=== PATIENT | female | born 1950 | race African-American/Black ===

== ENCOUNTER 2016-09-01 14:49 | Emergency (ER) | payer OTHER ==
[2016-09-01] VITALS (10 sets, daily range): BP systolic 135–242; BP diastolic 85–179; PULSE 68–80; RESP 16–18; TEMP 98.2–98.3; O2SAT 89–96
[~2016-09-01] VITALS: Ht 157.5 cm; Wt 84.0 kg
[~2016-09-01 14:49] MED LIST: ASPI81TA82 PO; BUME2TAB PO; CARV25TA PO; CHOL1CAP6 PO; FLUT50SP EACH NARE; GABA300C3 PO; HUMALOGP SQ; HYDR-3533 PO; HYDR50TA15 PO; ISOS30TA3 PO; LANS30 PO
--- NOTE | 2016-09-01 15:26 | PD ---
HPI Chief Complaint: Pain: Acute or Chronic Time Seen by Provider: 14:56 Travel History International Travel<30 days: No Contact w/Intl Traveler<30days: No Traveled to known affect area: No History of Present Illness HPI 65-year-old female complains of right-sided mid back pain right-sided upper back pain. Patient states that the symptoms started yesterday. Patient stated the pain constant pain sharp pain and worse with deep breathing. Patient denies any recent fall or injury. Patient denies any coughing congestion or shortness of breath. Patient has history of COPD and has been using O2 3 L nasal cannula is needed at home. Patient denies any fever chills. Patient has history of CHF also. Patient states that she did not take her blood pressure medication today. PFSH Past Medical History Cardiovascular Problems: Yes (CHF) High Cholesterol: Yes Congestive Heart Failure: Yes (CHRONIC DIASTOLIC) COPD: Yes Diabetes: Yes (TYPE 2) Patient Takes Glucophage: No Diminished Hearing: No GERD: Yes Gout: Yes (LEFT ANKLE AND FOOT) Genitourinary: Yes ( CHRONIC KIDNEY DISEASE ) Hypertension: Yes Respiratory: Yes (COPD) Immunizations Current: No Thyroid Disease: Yes (HYPO) Tetanus Vaccination: Unknown Influenza Vaccination: Yes ?: Not Menopausal: Yes : 6 Para: 6 Tubal Ligation: Yes Past Surgical History Cholecystectomy: Yes Social History Alcohol Use: No Tobacco Use: No (QUIT 10 YEARS AGO ) Substance Use: No Allergies-Medications (Allergen,Severity, Reaction): Coded Allergies: Lantus (Verified Allergy, Severe, 09/01/16) Metformin (Verified Allergy, Severe, 09/01/16) Latex (Verified Allergy, Unknown, 09/01/16) Reported Meds & Prescriptions Reported Meds & Active Scripts Active Alexander (Hydrocodone-Acetaminophen) 5-325 mg Tab 1 Tab PO Q6H PRN Clonidine (Clonidine HCl) 0.1 Mg Tab 0.1 Mg PO BID Reported Humalog Inj (Insulin Human Lispro) 1,000 Unit/10 Ml Vial 10 Units SQ BIDAC PER SLIDING SCALE Levemir Inj (Insulin Detemir) 1,000 unit/ 10 ML Vial 25 Units SQ DAILY IN THE AM Do not mix with any other Insulin. Vitamin D3 (Cholecalciferol) 1,000 Unit Tab 1,000 Units PO DAILY Levothyroxine (Levothyroxine Sodium) 75 Mcg Tab 75 Mcg PO DAILY Hydralazine (Hydralazine HCl) 25 Mg Tab 25 Mg PO QID Sodium Bicarbonate 650 Mg Tab 650 Mg PO BID Lansoprazole 30 Mg Capdr 30 Mg PO DAILY Lisinopril 40 Mg Tab 40 Mg PO DAILY Glimepiride 4 Mg Tab 4 Mg PO DAILY Take with breakfast or first main meal Coreg (Carvedilol) 25 Mg Tab 25 Mg PO BID Bumex (Bumetanide) 2 Mg Tab 2 Mg PO DAILY Gabapentin 300 Mg Cap 300 Mg PO TID Isosorbide Dinitrate 30 Mg Tab 30 Mg PO Q12HR Aspirin Adult Low Strength (Aspirin) 81 Mg Tabdr 81 Mg PO DAILY Review of Systems General / Constitutional: No: Fever Eyes: No: Visual changes HENT: No: Headaches Cardiovascular: Positive: Chest Pain or Discomfort Respiratory: No: Shortness of Breath Gastrointestinal: No: Abdominal Pain Genitourinary: No: Dysuria Musculoskeletal: No: Pain Skin: No Rash Neurologic: No: Weakness Psychiatric: No: Depression Endocrine: No: Polydipsia Hematologic/Lymphatic: No: Easy Bruising Physical Exam Narrative GENERAL: Well-nourished, well-developed patient. SKIN: Warm and dry. HEAD: Normocephalic. EYES: No scleral icterus. No injection or drainage. NECK: Supple, trachea midline. No JVD or lymphadenopathy. CARDIOVASCULAR: Regular rate and rhythm without murmurs, gallops, or rubs. RESPIRATORY: Breath sounds equal bilaterally. No accessory muscle use. GASTROINTESTINAL: Abdomen soft, non-tender, nondistended. MUSCULOSKELETAL: No cyanosis, or edema. BACK: Patient has mild tenderness on palpation low thoracic upper lumbar area midline and right side midback, without obvious deformity. No CVA tenderness. No rash noted. Neurologic exam normal. Data Data Last Documented VS Vital Signs Date Time Temp Pulse Resp B/P Pulse Ox O2 Delivery O2 Flow Rate FiO2 09/01/16 21:37 70 18 185/85 09/01/16 19:38 95 09/01/16 18:00 Nasal Cannula 2 09/01/16 15:01 98.2 Orders Electrocardiogram (09/01/16 ) Complete Blood Count With Diff (09/01/16 15:06) Comprehensive Metabolic Panel (09/01/16 15:06) Creatine Kinase (Cpk) (09/01/16 15:06) Troponin I (09/01/16 15:06) B-Type Natriuretic Peptide (09/01/16 15:06) Prothrombin Time / Inr (Pt) (09/01/16 15:06) Act Partial Throm Time (Ptt) (09/01/16 15:06) Urinalysis - C+S If Indicated (09/01/16 15:06) D-Dimer (09/01/16 15:06) Chest, Single Ap (09/01/16 15:06) Iv Access Insert/Monitor (09/01/16 15:06) Ecg Monitoring (09/01/16 15:06) Oxygen Administration (09/01/16 15:06) Oximetry (09/01/16 15:06) Ct Thor Spine W/O Contrast (09/01/16 15:06) Ct Lumb Spine W/O Contrast (09/01/16 15:06) Ventilation & Perfusion Scan (09/01/16 17:03) Hydralazine Inj (Apresoline Inj) (09/01/16 17:45) Hydralazine Inj (Apresoline Inj) (09/01/16 19:45) Clonidine (Catapres) (09/01/16 20:15) Morphine Inj (Morphine Inj) (09/01/16 20:30) Ondansetron Odt (Zofran Odt) (09/01/16 20:30) Labs Laboratory Tests Test 09/01/16 09/01/16 15:32 17:30 White Blood Count 6.6 TH/MM3 Red Blood Count 3.85 MIL/MM3 Hemoglobin 9.7 GM/DL Hematocrit 31.0 % Mean Corpuscular Volume 80.5 FL Mean Corpuscular Hemoglobin 25.1 PG Mean Corpuscular Hemoglobin 31.2 % Concent Red Cell Distribution Width 18.3 % Platelet Count 261 TH/MM3 Mean Platelet Volume 7.8 FL Neutrophils (%) (Auto) 70.7 % Lymphocytes (%) (Auto) 16.8 % Monocytes (%) (Auto) 7.6 % Eosinophils (%) (Auto) 3.1 % Basophils (%) (Auto) 1.8 % Neutrophils # (Auto) 4.7 TH/MM3 Lymphocytes # (Auto) 1.1 TH/MM3 Monocytes # (Auto) 0.5 TH/MM3 Eosinophils # (Auto) 0.2 TH/MM3 Basophils # (Auto) 0.1 TH/MM3 CBC Comment DIFF FINAL Differential Comment Prothrombin Time 11.4 SEC Prothromb Time International 1.0 RATIO Ratio Activated Partial 26.0 SEC Thromboplast Time D-Dimer Quantitative (PE/DVT) 1.82 MG/L FEU Sodium Level 143 MEQ/L Potassium Level 4.8 MEQ/L Chloride Level 109 MEQ/L Carbon Dioxide Level 25.5 MEQ/L Anion Gap 9 MEQ/L Blood Urea Nitrogen 59 MG/DL Creatinine 3.22 MG/DL Estimat Glomerular Filtration 18 ML/MIN Rate Random Glucose 80 MG/DL Calcium Level 8.7 MG/DL Total Bilirubin 0.6 MG/DL Aspartate Amino Transf 36 U/L (AST/SGOT) Alanine Aminotransferase 66 U/L (ALT/SGPT) Alkaline Phosphatase 197 U/L Total Creatine Kinase 161 U/L Troponin I LESS THAN 0.02 NG/ML B-Type Natriuretic Peptide 463 PG/ML Total Protein 7.8 GM/DL Albumin 3.3 GM/DL Urine Color LIGHT-YELLOW Urine Turbidity CLEAR Urine pH 7.0 Urine Specific [place] 1.010 Urine Protein 300 mg/dL Urine Glucose (UA) NEG mg/dL Urine Ketones NEG mg/dL Urine Occult Blood TRACE Urine Nitrite NEG Urine Bilirubin NEG Urine Urobilinogen LESS THAN 2.0 MG/DL Urine Leukocyte Esterase NEG Urine RBC 7 /hpf Urine WBC 2 /hpf Urine Squamous Epithelial 1 /hpf Cells Urine Bacteria OCC /hpf Microscopic Urinalysis Comment CULT NOT INDICATED MDM Medical Decision Making Medical Screen Exam Complete: Yes Emergency Medical Condition: Yes Interpretation(s) 1525 PM. EKG shows sinus rhythm with nonspecific ST-T wave change. 1855 PM. Last Impressions Thoracic Spine CT 09/01/161505 Signed Impressions: Service Date/Time: Thursday, September 01, 2016 17:10 - CONCLUSION: 1. No acute fracture or subluxation. Moderate degenerative disc disease as above. No discrete disc protrusions identified on CT examination. Aditya Mendez MD Lumbar Spine CT 09/01/16 150 Signed Impressions: Service Date/Time: Thursday, September 01, 2016 17:10 - CONCLUSION: 1. No acute fracture. Broad-based posterior disc bulges in the lower lumbar spine. Aditya Mendez MD Chest X-Ray 09/01/16 150 Signed Impressions: Service Date/Time: Thursday, September 01, 2016 15:27 - CONCLUSION: 1. Mild interstitial edema pattern. Questionable focal pneumonic infiltrate or atelectasis left midlung. Aditya Mendez MD 1856 PM. CBC WBC 6.6. Hemoglobin 9.7 hematocrit 31.0. Normal differential. BUN 59. Creatinine 3.22. GFR 18. ALT 66. Alkaline phosphatase 197. Troponin normal. BNP 463. UA negative. 2017 p.m. VQ scan normal. Differential Diagnosis Differential diagnosis including musculoskeletal, HNP, rib fracture, pneumothorax, PE. Narrative Course 65-year-old female with right-sided upper back pain and low thoracic and upper lumbar pain. Morphine 2 mg IM. Zofran 4 mg ODT. Hydralazine 10 mg IV 2. Clonidine 0.1 mg by mouth. 21:40 PM. Repeat blood pressure 185/85. Diagnosis Primary Impression: Acute thoracic myofascial strain Qualified Code: S29.019A - Acute thoracic myofascial strain, initial encounter Additional Impressions: Lumbar strain Qualified Code: S39.012A - Lumbar strain, initial encounter Uncontrolled hypertension Patient Instructions: General Instructions Additional Instructions: Take medications as directed. Follow-up with personal physician and orthopedist. Return if persistent problem or worse. Take stool softener with pain medication. Med/Other Pt SpecificInfo: Prescription(s) given Scripts Hydrocodone-Acetaminophen (Alexander)5-325 mg Tab1 Tab PO Q6H PRN (PAIN) #20 TAB Ref 0 Prov:Sandip Rahman MD 09/01/16 Clonidine 0.1 Mg Tab0.1 Mg PO BID #20 TAB Ref 0 Prov:Sandip Rahman MD 09/01/16 Disposition: 01 DISCHARGE HOME Condition: Stable Sandip Rahman MD Sep 01, 2016 15:26
[2016-09-01] MEDS ORDERED: HUMALOG SQ (16:15)
[2016-09-01] MEDS ORDERED: GLIM4TAB PO (16:15)
[2016-09-01] MEDS ORDERED: ISOS30TA15 PO (16:15)
[2016-09-01] MEDS ORDERED: LISI40TA PO (16:15)
[2016-09-01] MEDS ORDERED: LEVO75TA3 PO (16:15)
[2016-09-01] MEDS ORDERED: VITA100018 PO (16:15)
[2016-09-01] MEDS ORDERED: HYDR25TA35 PO (16:15)
[2016-09-01] MEDS ORDERED: CORE25TA PO (16:15)
[2016-09-01] MEDS ORDERED: LEVEMIR SQ (16:15)
[2016-09-01] MEDS ORDERED: SODI650T PO (16:15)
[2016-09-01] MEDS ORDERED: GABA300C5 PO (16:15)
[2016-09-01] MEDS ORDERED: ASPI1TAB91 PO (16:15)
[2016-09-01] MEDS ORDERED: LANS30CA PO (16:15)
[2016-09-01] MEDS ORDERED: BUME1TAB28 PO (16:15)
[2016-09-01 16:18] LABS: AUTOMATED NEUTROPHIL # 4.7 TH/MM3 (1.8-7.7); BASOPHIL # 0.1 TH/MM3 (0-0.2); BASOPHIL % 1.8 % (0.0-2.0); EOSINOPHIL # 0.2 TH/MM3 (0-0.4); EOSINOPHIL % 3.1 % (0.0-4.0); HEMO FLAGS DIFF FINAL; LYMPH % 16.8 % (9.0-44.0); LYMPHOCYTE # 1.1 TH/MM3 (1.0-4.8); MEAN CELL VOLUME 80.5 FL (80.0-100.0); MEAN CORPUSCULAR HEMOGLOBIN 25.1 PG (27.0-34.0); MEAN CORPUSCULAR HGB CONC 31.2 % (32.0-36.0); MONO % 7.6 % (0.0-8.0); NEUT % 70.7 % (16.0-70.0); PLATELET COUNT 261 TH/MM3 (150-450); RED BLOOD COUNT 3.85 MIL/MM3 (4.00-5.30); RED CELL DISTRIBUTION WIDTH 18.3 % (11.6-17.2); WHITE BLOOD COUNT 6.6 TH/MM3 (4.0-11.0)
--- NOTE | 2016-09-01 16:28 | RADRPT ---
EXAM DATE/TIME: 09/01/2016 15:27 [facility] COMPARISON: No previous studies available for comparison. INDICATIONS : Short of breath. MEDICAL HISTORY : None. SURGICAL HISTORY : None. ENCOUNTER: Initial ACUITY: 1 day PAIN SCORE: 10/10 LOCATION: Right lower chest pain. FINDINGS: Heart size mildly enlarged. Interstitial prominence present in the lungs which could represent some m ild edema. There is focal consolidation left midlung that could represent superimposed infection. No significant effusion. No pneumothorax. CONCLUSION: 1. Mild interstitial edema pattern. Questionable focal pneumonic infiltrate or atelectasis left midlu ng. Aditya Mendez MD on September 01, 2016 at 16:25 Board Certified Radiologist. This report was verified electronically.
[2016-09-01 16:39] LABS: PROTHROMBIN TIME - PATIENT 11.4 SEC (9.8-11.6)
[2016-09-01 16:53] LABS: ALT (GPT) 66 U/L (10-53); ANION GAP 9 MEQ/L (5-15); AST (GOT) 36 U/L (15-37); BICARBONATE 25.5 MEQ/L (21.0-32.0); BLOOD UREA NITROGEN 59 MG/DL (7-18); CHLORIDE 109 MEQ/L (98-107); GLOMERULAR FILTRATION RATE 18 ML/MIN (>89); POTASSIUM 4.8 MEQ/L (3.5-5.1); SODIUM (NA) 143 MEQ/L (136-145)
[2016-09-01 16:57] LABS: ALKALINE PHOSPHATASE 197 U/L (45-117); CREATINE KINASE 161 U/L (26-192); TOTAL BILIRUBIN ADULT 0.6 MG/DL (0.2-1.0)
[2016-09-01] MEDS ORDERED: hydrALAZINE HCL 20 MG/ML VIAL IV PUSH ONE ×2 (17:45→19:45)
[2016-09-01 17:51] LABS: BACTERIA, URINE OCC /hpf; BLOOD, URINE TRACE (NEG); COMMENT (UR) CULT NOT INDICATED; CULTURE IF INDICATED CULT NOT INDICATED; GLUCOSE,URINE NEG (NEG); KETONE, URINE NEG (NEG); NITRITE,URINE NEG (NEG); SQUAMOUS EPITHELIAL CELL URINE 1 /hpf (0-5); URINE COLOR LIGHT-YELLOW (YELLW/STRAW)
--- NOTE | 2016-09-01 18:01 | RADRPT ---
EXAM DATE/TIME: 09/01/2016 17:10 [facility] COMPARISON: No previous studies available for comparison. INDICATIONS : Back pain. RADIATION DOSE: 35.86 CTDIvol (mGy) ; Combined studies - Thoracic Spine/Lumbar Spine MEDICAL HISTORY : Chronic obstructive pulmonary disease. Congestive heart failure. Diabetes mellitus type 2.Hypertensio n. Renal insufficiency. SURGICAL HISTORY : Tubal ligation. ENCOUNTER: Initial ACUITY: 1 day PAIN SCALE: 7/10 LOCATION: Thoracic spine. TECHNIQUE: Volumetric scanning of the thoracic spine was performed. Multiplanar reconstructions in the sagittal , coronal and oblique axial planes were performed. Using automated exposure control and adjustment o f the mA and/or kV according to patient size, radiation dose was kept as low as reasonably achievable to obtain optimal diagnostic quality images. FINDINGS: There is moderate degenerative disc disease in the thoracic spine. Mild levoscoliosis. Several small Schmorl's nodes present in the mid and lower thoracic spine. No acute fracture or spondylolisthesis. No significant bony canal stenosis. Incidental note made of bilateral pleural effusions and some basi lar air space disease in the lungs. CONCLUSION: 1. No acute fracture or subluxation. Moderate degenerative disc disease as above. No discrete disc pr otrusions identified on CT examination. Aditya Mendez MD on September 01, 2016 at 17:55 Board Certified Radiologist. This report was verified electronically.
--- NOTE | 2016-09-01 18:12 | RADRPT ---
EXAM DATE/TIME: 09/01/2016 17:10 [facility] COMPARISON: No previous studies available for comparison. INDICATIONS : Back pain. RADIATION DOSE: 35.86 CTDIvol (mGy) ; Combined studies - Thoracic Spine/Lumbar Spine MEDICAL HISTORY : Chronic obstructive pulmonary disease. Congestive heart failure. Gastroesophageal reflux disease. Hyp ertension. Renal insufficiency. Diabetes. SURGICAL HISTORY : Tubal ligation. ENCOUNTER: Initial ACUITY: 1 day PAIN SCALE: 7/10 LOCATION: Lumbar spine. TECHNIQUE: Volumetric scanning of the lumbar spine was performed. Multiplanar reconstructions in the sagittal, coronal and oblique axial planes were performed. Using automated exposure control and adjustment of the mA and/or kV according to patient size, radiation dose was kept as low as reasonably achievable t o obtain optimal diagnostic quality images. FINDINGS: No acute fracture or subluxation. Broad-based posterior disc bulge is present at L3-4-5-S1. Mild cent ral canal stenosis at L3-4 and L4-5. Bones are osteopenic. CONCLUSION: 1. No acute fracture. Broad-based posterior disc bulges in the lower lumbar spine. Aditya Mendez MD on September 01, 2016 at 18:00 Board Certified Radiologist. This report was verified electronically.
--- NOTE | 2016-09-01 20:12 | RADRPT ---
EXAM DATE/TIME: 09/01/2016 18:24 [facility] COMPARISON: No previous studies available for comparison. INDICATIONS : Chest pain with dyspnea. DOSE: 8.5 mCi Tc99m MAA IV 0.38 mCi Tc99m DTPA aerosol MEDICAL HISTORY : Diabetes mellitus type 2. Gastroesophageal reflux disease. Chronic obstructive pulmonary disease. Hyp othyroidism. SURGICAL HISTORY : Cholecystectomy. Tubal ligation. ENCOUNTER: Initial ACUITY: 1 day PAIN SCALE: 4/10 LOCATION: Left chest TECHNIQUE: Following five minutes of tidal breathing of DTPA aerosol, planar images of the lungs were performed in eight projections. The patient was then injected with MAA, and eight-view perfusion scan was perf ormed. FINDINGS: There is a homogeneous pattern of aerosol delivery to the periphery of both lungs. No focal ventilat ory defects are seen. The perfusion lung scan demonstrates a homogenous pattern of uptake in both lungs. No segmental or s ubsegmental defects are seen. CONCLUSION: Normal examination. Aditya Mendez MD on September 01, 2016 at 20:10 Board Certified Radiologist. This report was verified electronically.
[2016-09-01] MEDS ORDERED: cloNIDine HCL 0.1 MG TAB PO ONE (20:15)
[2016-09-01] MEDS ORDERED: MORPHINE SULFATE 4 MG/ML INJ IM ONE (20:30)
[2016-09-01] MEDS ORDERED: ONDANSETRON ODT 4 MG TAB PO ONE (20:30)
[2016-09-01] MEDS ORDERED: CLON0.1T PO (21:21)
[2016-09-01] MEDS ORDERED: NORC5TAB PO (21:21)
--- NOTE | 2016-09-01 22:00 | PD ---
Data Data Last Documented VS Vital Signs Date Time Temp Pulse Resp B/P Pulse Ox O2 Delivery O2 Flow Rate FiO2 09/01/16 21:37 70 18 185/85 09/01/16 19:38 95 09/01/16 18:00 Nasal Cannula 2 09/01/16 15:01 98.2 Orders Electrocardiogram (09/01/16 ) Complete Blood Count With Diff (09/01/16 15:06) Comprehensive Metabolic Panel (09/01/16 15:06) Creatine Kinase (Cpk) (09/01/16 15:06) Troponin I (09/01/16 15:06) B-Type Natriuretic Peptide (09/01/16 15:06) Prothrombin Time / Inr (Pt) (09/01/16 15:06) Act Partial Throm Time (Ptt) (09/01/16 15:06) Urinalysis - C+S If Indicated (09/01/16 15:06) D-Dimer (09/01/16 15:06) Chest, Single Ap (09/01/16 15:06) Iv Access Insert/Monitor (09/01/16 15:06) Ecg Monitoring (09/01/16 15:06) Oxygen Administration (09/01/16 15:06) Oximetry (09/01/16 15:06) Ct Thor Spine W/O Contrast (09/01/16 15:06) Ct Lumb Spine W/O Contrast (09/01/16 15:06) Ventilation & Perfusion Scan (09/01/16 17:03) Hydralazine Inj (Apresoline Inj) (09/01/16 17:45) Hydralazine Inj (Apresoline Inj) (09/01/16 19:45) Clonidine (Catapres) (09/01/16 20:15) Morphine Inj (Morphine Inj) (09/01/16 20:30) Ondansetron Odt (Zofran Odt) (09/01/16 20:30) Labs Laboratory Tests Test 09/01/16 09/01/16 15:32 17:30 White Blood Count 6.6 TH/MM3 Red Blood Count 3.85 MIL/MM3 Hemoglobin 9.7 GM/DL Hematocrit 31.0 % Mean Corpuscular Volume 80.5 FL Mean Corpuscular Hemoglobin 25.1 PG Mean Corpuscular Hemoglobin 31.2 % Concent Red Cell Distribution Width 18.3 % Platelet Count 261 TH/MM3 Mean Platelet Volume 7.8 FL Neutrophils (%) (Auto) 70.7 % Lymphocytes (%) (Auto) 16.8 % Monocytes (%) (Auto) 7.6 % Eosinophils (%) (Auto) 3.1 % Basophils (%) (Auto) 1.8 % Neutrophils # (Auto) 4.7 TH/MM3 Lymphocytes # (Auto) 1.1 TH/MM3 Monocytes # (Auto) 0.5 TH/MM3 Eosinophils # (Auto) 0.2 TH/MM3 Basophils # (Auto) 0.1 TH/MM3 CBC Comment DIFF FINAL Differential Comment Prothrombin Time 11.4 SEC Prothromb Time International 1.0 RATIO Ratio Activated Partial 26.0 SEC Thromboplast Time D-Dimer Quantitative (PE/DVT) 1.82 MG/L FEU Sodium Level 143 MEQ/L Potassium Level 4.8 MEQ/L Chloride Level 109 MEQ/L Carbon Dioxide Level 25.5 MEQ/L Anion Gap 9 MEQ/L Blood Urea Nitrogen 59 MG/DL Creatinine 3.22 MG/DL Estimat Glomerular Filtration 18 ML/MIN Rate Random Glucose 80 MG/DL Calcium Level 8.7 MG/DL Total Bilirubin 0.6 MG/DL Aspartate Amino Transf 36 U/L (AST/SGOT) Alanine Aminotransferase 66 U/L (ALT/SGPT) Alkaline Phosphatase 197 U/L Total Creatine Kinase 161 U/L Troponin I LESS THAN 0.02 NG/ML B-Type Natriuretic Peptide 463 PG/ML Total Protein 7.8 GM/DL Albumin 3.3 GM/DL Urine Color LIGHT-YELLOW Urine Turbidity CLEAR Urine pH 7.0 Urine Specific [place] 1.010 Urine Protein 300 mg/dL Urine Glucose (UA) NEG mg/dL Urine Ketones NEG mg/dL Urine Occult Blood TRACE Urine Nitrite NEG Urine Bilirubin NEG Urine Urobilinogen LESS THAN 2.0 MG/DL Urine Leukocyte Esterase NEG Urine RBC 7 /hpf Urine WBC 2 /hpf Urine Squamous Epithelial 1 /hpf Cells Urine Bacteria OCC /hpf Microscopic Urinalysis Comment CULT NOT INDICATED MDM Supervised Visit with TALIA: No Narrative Course I was informed about patient via nursing. Apparently she had gone to VQ scan and had a ultrasound guided IV in the left antecubital that infiltrated. Nursing noticed a large area of swelling and patient was having some pain. Previous provider had discharged patient. He had already left for the day and so nursing notified myself. I went and evaluated patient. She has a hematoma in the antecubital fossa of the left forearm. There is mild amount of tenderness to palpation, but this is soft. She is able to move the hand, wrist and elbow without any significant pain. Good distal sensation and pulses. There is no evidence of compartment syndrome. Patient was reassured and instructed to alternate with ice and heat to break up the hematoma and improved swelling. Will be discharged home as previously planned. Diagnosis Primary Impression: Acute thoracic myofascial strain Qualified Code: S29.019A - Acute thoracic myofascial strain, initial encounter Additional Impressions: Uncontrolled hypertension Lumbar strain Qualified Code: S39.012A - Lumbar strain, initial encounter Patient Instructions: General Instructions Departure Forms: Tests/Procedures Additional Instruction: Take medications as directed. Follow-up with personal physician and orthopedist. Return if persistent problem or worse. Take stool softener with pain medication. Scripts Hydrocodone-Acetaminophen ([place])5-325 mg Tab1 Tab PO Q6H PRN (PAIN) #20 TAB Ref 0 Prov:Sandip Rahman MD 09/01/16 Clonidine 0.1 Mg Tab0.1 Mg PO BID #20 TAB Ref 0 Prov:Sandip Rahman MD 09/01/16 Disposition: 01 DISCHARGE HOME Condition: Stable Anisa Rosen MD Sep 01, 2016 22:00
--- NOTE | 2016-09-02 11:52 | EKG ---
Date Performed: 09/01/2016 Time Performed: 15:11:11 PTAGE: 65 years EKG: Sinus rhythm NONSPECIFIC T-WAVE ABNORMALITY ABNORMAL ECG NO PREVIOUS TRACING DOCTOR: Keyshawn Lopez Interpretating Date/Time 09/02/2016 11:49:58
== END 2016-09-01 23:27 | disposition home or self-care (01) ==
LOC: NEPA 14:49
DX: S29.012A Strain of muscle and tendon of back wall of thorax, initial encounter (principal); S39.012A Strain of muscle, fascia and tendon of lower back, initial encounter; I12.9 Hypertensive chronic kidney disease with stage 1 through stage 4 chronic kidney disease, or unspecified chronic kidney disease; E11.22 Type 2 diabetes mellitus with diabetic chronic kidney disease; N18.9 Chronic kidney disease, unspecified; J44.9 Chronic obstructive pulmonary disease, unspecified; I50.32 Chronic diastolic (congestive) heart failure; R94.31 Abnormal electrocardiogram [ECG] [EKG]; X50.9XXA Other and unspecified overexertion or strenuous movements or postures, initial encounter; Z87.891 Personal history of nicotine dependence; Z79.4 Long term (current) use of insulin
CPT/HCPCS: 71010; 72128; 72131; 78582; 80053; 81001; 82550; 83880; 84484; 85025; 85379; 85610; 85730; 93005; 96372; 96374; 99284; A9540; A9567; J0360; J2270